=== PATIENT | female | born 1980 | race Caucasian/White ===

== ENCOUNTER 2016-08-09 14:10 | Inpatient (IN) | payer OTHER ==
[~2016-08-09] VITALS: Ht 170.2 cm; Wt 121.2 kg
[~2016-08-09 14:10] MED LIST: AMLODIPINE BESYL5 MG PO; ATENOLOL50 MG PO; CITALOPRAM HBR20 MG PO; CLONAZEPAM1 MG PO; CLONIDINE HCL0.1 MG PO; FLAGYL500 MG PO; HYDROCORTISONE10 MG PO; HYDROCORTISONE5 MG PO; HYGROTON25 MG PO; IBUPROFEN800 MG PO; LIOTHYRONINE S25 MCG PO; LISINOPRIL20 MG PO; LOPERAMIDE2 MG PO; METOPROLOL SUCC25 MG PO; NAPROSYN500 MG PO; PEN-VEE K,VEET500 MG PO; PRILOSEC OTC20 MG PO; SYNTHROID175 MCG PO; SYNTHROID200 MCG PO; TYLENOL WITH C1 EACH PO; ULTRAM50 MG PO; VITAMIN D32000 UNI1 PO
[2016-08-09 15:00] LABS: HEMATOCRIT 41.6 % (36.0-46.0); MCH 26.7 PG (29.0-34.0); MCHC 32.5 G/DL (30.0-36.0); MCV 82.4 FL (83-99); MEAN PLAT.VOLUME 9.6 uM^3 (9.5-12.4); PLATELET COUNT 420 K/uL (156-360); RBC DIS.WIDTH-CV 15.5 % (11.8-14.6); RBC DIS.WIDTH-SD 46.3 % (39-53); RED BLOOD COUNT 5.05 M/uL (3.80-5.20); WHITE BLOOD COUNT 17.4 K/uL (4.1-10.2)
[2016-08-09 15:12] LABS: CHLORIDE 100 mEq/L (99-109); POTASSIUM 3.6 mEq/L (3.7-5.4); SODIUM 137 mEq/L (136-147)
[2016-08-09 15:14] LABS: GLUCOSE 146 mg/dL (70-99)
[2016-08-09 15:15] LABS: ANION GAP 12 MEQ/L (2-14)
[2016-08-09 15:16] LABS: TOTAL BILIRUBIN 0.4 mg/dL (0.0-1.0)
[2016-08-09 15:17] LABS: ALKALINE PHOSPHATASE 74 IU/L (3-129)
[2016-08-09 15:18] LABS: GFR ESTIMATE (CALCULATED) > 59 mL/min/
[2016-08-09 15:19] LABS: UREA NITROGEN (BUN) 14 mg/dL (9-23)
[2016-08-09 15:20] LABS: QUANTITATIVE HCG < 4.0 MIU/ML
[2016-08-09 16:54] LABS: ADD MIUA? YES; BILIRUBIN NEGATIVE; BLOOD NEGATIVE; COLOR YELLOW ((YELLOW)); GLUCOSE (STRIP) NEGATIVE; KETONES NEGATIVE; LEUKOCYTES NEGATIVE; NITRITE NEGATIVE; PROTEIN (STRIP) 100; SPECIFIC GRAVITY 1.021 (1.000-1.030); UROBILINOGEN 0.2 MG/DL (0.2-1.0)
[2016-08-09 17:05] LABS: BACTERIA NONE SEEN /HPF; EPITHELIAL CELLS RARE /HPF; MUCUS TRACE /LPF; RED BLOOD CELLS 0-5 /HPF (0-5); UCUL ADDED? NO; WHITE BLOOD CELLS 0-5 /HPF (0-5)
[2016-08-09] MEDS ORDERED: OMEPRAZOLE40 M1 PO (20:11)
[2016-08-09] MEDS ORDERED: CLONAZEPAM1 MG PO (20:11)
[2016-08-09] MEDS ORDERED: CYANOCOBALAM1000 MCG PO (20:12)
[2016-08-09] MEDS ORDERED: ROPINIROLE HC0.25 MG PO (20:12)
[2016-08-09] MEDS ORDERED: METFORMIN HCL500 MG PO (20:13)
[2016-08-09] MEDS ORDERED: DEXAMETHASONE0.75 MG PO (20:13)
[2016-08-09] MEDS ORDERED: PROMETHAZINE HC25 M1 PO (20:13)
[2016-08-09] MEDS ORDERED: TYLENOL EXTRA500 MG PO (20:13)
[2016-08-09] MEDS ORDERED: ELAVIL25 MG PO (20:13)
[2016-08-09] MEDS ORDERED: SYNTHROID200 MCG PO (20:15)
[2016-08-10 00:13] VITALS: BP 135/75
[2016-08-10 03:34] VITALS: BP 129/65
[2016-08-10 06:38] LABS: HEMATOCRIT 38.7 % (36.0-46.0); MCH 27.4 PG (29.0-34.0); MCHC 32.3 G/DL (30.0-36.0); MCV 84.7 FL (83-99); MEAN PLAT.VOLUME 10.6 uM^3 (9.5-12.4); PLATELET COUNT 423 K/uL (156-360); RBC DIS.WIDTH-CV 15.3 % (11.8-14.6); RBC DIS.WIDTH-SD 47.1 % (39-53); RED BLOOD COUNT 4.57 M/uL (3.80-5.20); WHITE BLOOD COUNT 16.8 K/uL (4.1-10.2)
[2016-08-10 07:03] LABS: ANION GAP 12 MEQ/L (2-14); CHLORIDE 101 MEQ/L (99-109); GFR ESTIMATE (CALCULATED) > 59 mL/min/; GLUCOSE 216 mg/dL (70-99); SAMPLE HEMOLYSIS CHECK 0; SAMPLE ICTERIC CHECK 0; SAMPLE LIPEMIA CHECK 0; SODIUM 136 MEQ/L (136-147); UREA NITROGEN (BUN) 16 mg/dL (9-23)
[2016-08-10 07:09] LABS: POTASSIUM 4.5 MEQ/L (3.7-5.4)
[2016-08-10 07:25] VITALS: BP 132/82
[2016-08-10] MEDS ORDERED: SYNTHROID100 MCG PO (10:51)
== END 2016-08-10 12:20 | disposition home or self-care (01) | DRG 644 ==
LOC: EME 14:10 → EDOF 22:02 → 2EAST 08-10 00:09
PROVIDERS: Hospitalist
DX: E27.40 Unspecified adrenocortical insufficiency (principal); E03.9 Hypothyroidism, unspecified; E11.9 Type 2 diabetes mellitus without complications; K21.9 Gastro-esophageal reflux disease without esophagitis; I10 Essential (primary) hypertension; F17.210 Nicotine dependence, cigarettes, uncomplicated; E66.01 Morbid (severe) obesity due to excess calories; E86.0 Dehydration; Z91.19 Patient's noncompliance with other medical treatment and regimen; E87.6 Hypokalemia; Z68.41 Body mass index [BMI] 40.0-44.9, adult
CPT/HCPCS: 70450; 71010; 80048; 80053; 81003; 82948; 84439; 84443; 84702; 85027; 99281; 99285; J1100; J1200; J1885; J2405; J2765; J7030

== ENCOUNTER 2016-08-30 23:57 | Inpatient (IN) | payer OTHER ==
[~2016-08-30] VITALS: Ht 170.2 cm; Wt 122.4 kg
[~2016-08-30 23:57] MED LIST changes: +CYANOCOBALAM1000 MCG PO; +DEXAMETHASONE0.75 MG PO; +ELAVIL25 MG PO; +METFORMIN HCL500 MG PO; +OMEPRAZOLE40 M1 PO; +PROMETHAZINE HC25 M1 PO; +ROPINIROLE HC0.25 MG PO; +SYNTHROID100 MCG PO; +TYLENOL EXTRA500 MG PO
[2016-08-31] VITALS (26 sets, daily range): BP systolic 109–155; BP diastolic 65–96
[2016-08-31 00:41] LABS: BASOPHIL COUNT 0.1 K/uL (0-0.1); EOSINOPHIL COUNT 0.2 K/uL (0-0.3); IMMATURE GRANULOCYTE (%) 0.9 % (0.0-0.7); IMMATURE GRANULOCYTE COUNT 0.2 K/uL; INSTRUMENT ABS NEUTROPHIL CT 11.4 K/uL; MCH 26.6 PG (29.0-34.0); MCV 83.2 FL (83-99); MEAN PLAT.VOLUME 9.8 uM^3 (9.5-12.4); MONOCYTE (%) 4.9 % (3-12); MONOCYTE COUNT 0.9 K/uL (0-0.8); NEUTROPHIL (%) 64.7 % (45-76); NEUTROPHIL COUNT 11.4 K/uL (1.8-6.4); PLATELET COUNT 458 K/uL (156-360); RBC DIS.WIDTH-CV 15.5 % (11.8-14.6); RBC DIS.WIDTH-SD 46.5 % (39-53); RED BLOOD COUNT 4.93 M/uL (3.80-5.20); WHITE BLOOD COUNT 17.6 K/uL (4.1-10.2)
[2016-08-31 00:51] LABS: CHLORIDE 101 mEq/L (99-109); POTASSIUM 4.1 mEq/L (3.7-5.4); SODIUM 137 mEq/L (136-147)
[2016-08-31 00:52] LABS: GLUCOSE 143 mg/dL (70-99)
[2016-08-31 00:54] LABS: ANION GAP 16 MEQ/L (2-14)
[2016-08-31 00:56] LABS: GFR ESTIMATE (CALCULATED) > 59 mL/min/
[2016-08-31 00:57] LABS: UREA NITROGEN (BUN) 15 mg/dL (9-23)
[2016-08-31 01:05] LABS: TROP-I INTERPRETATION NEGATIVE; TROPONIN-I 0.03 ng/mL (0.0-0.30)
[2016-08-31 03:28] LABS: METH RESISTANT S AUREUS PCR NEGATIVE (NEGATIVE)
[2016-08-31 03:32] LABS: PROBE CHECK PASS; SPECIMEN PROCESSING CONTROL PASS
[2016-08-31 05:58] LABS: EOSINOPHIL (%) 0.1 % (0-5); IMMATURE GRANULOCYTE (%) 0.9 % (0.0-0.7); IMMATURE GRANULOCYTE COUNT 0.2 K/uL; INSTRUMENT ABS NEUTROPHIL CT 16.3 K/uL; LYMPHOCYTE COUNT 1.1 K/uL (1.0-2.8); MCH 26.1 PG (29.0-34.0); MCV 84.2 FL (83-99); MEAN PLAT.VOLUME 9.9 uM^3 (9.5-12.4); MONOCYTE (%) 1.6 % (3-12); MONOCYTE COUNT 0.3 K/uL (0-0.8); NEUTROPHIL (%) 90.9 % (45-76); NEUTROPHIL COUNT 16.3 K/uL (1.8-6.4); PLATELET COUNT 483 K/uL (156-360); RBC DIS.WIDTH-CV 15.6 % (11.8-14.6); RBC DIS.WIDTH-SD 47.2 % (39-53); RED BLOOD COUNT 4.63 M/uL (3.80-5.20); WHITE BLOOD COUNT 17.9 K/uL (4.1-10.2)
[2016-08-31 06:20] LABS: ANION GAP 12 MEQ/L (2-14); CHLORIDE 97 MEQ/L (99-109); GFR ESTIMATE (CALCULATED) > 59 mL/min/; HDL CHOLESTEROL 41 MG/DL (Desirable>=50); LDL CHOLESTEROL 129 mg/dL (Desirable<100); NON-HDL CHOLESTEROL 174 mg/dL (Desirable<160); SAMPLE HEMOLYSIS CHECK 1; SAMPLE ICTERIC CHECK 0; SAMPLE LIPEMIA CHECK 0; SODIUM 131 MEQ/L (136-147); TOTAL CHOLESTEROL 215 mg/dL (Desirable<200); TRIGLYCERIDES 225 MG/DL (Normal: <150); UREA NITROGEN (BUN) 14 mg/dL (9-23)
[2016-08-31 06:26] LABS: GLUCOSE 285 mg/dL (70-99); POTASSIUM 4.9 MEQ/L (3.7-5.4)
[2016-08-31 06:27] LABS: TROP-I INTERPRETATION POSITIVE; TROPONIN-I 1.73 ng/mL (0.0-0.30)
[2016-08-31 08:00] LABS: Estimated Average Glucose 186 mg/dL (70-123); HEMOGLOBIN A1c (GLYCOHEMOGLOB) 8.1 % HGB (Below 5.7)
[2016-08-31] MEDS ORDERED: LOPRESSOR25 MG PO (13:52)
[2016-08-31] MEDS ORDERED: LEVO-T300 MCG PO (16:16)
[2016-08-31 17:23] LABS: POINT-OF-CARE METER ID UU14162636; POINT-OF-CARE USER ID 606021424
[2016-08-31 20:21] LABS: TROP-I INTERPRETATION POSITIVE; TROPONIN-I 9.84 ng/mL (0.0-0.30)
[2016-09-01] VITALS (15 sets, daily range): BP systolic 105–149; BP diastolic 65–101
[2016-09-01 06:39] LABS: TROP-I INTERPRETATION POSITIVE; TROPONIN-I 10.41 ng/mL (0.0-0.30)
[2016-09-01 16:24] LABS: ANION GAP 7 MEQ/L (2-14); CHLORIDE 101 MEQ/L (99-109); GFR ESTIMATE (CALCULATED) > 59 mL/min/; GLUCOSE 148 mg/dL (70-99); SAMPLE HEMOLYSIS CHECK 0; SAMPLE ICTERIC CHECK 0; SAMPLE LIPEMIA CHECK 0; SODIUM 136 MEQ/L (136-147)
[2016-09-01 16:26] LABS: POTASSIUM 3.9 MEQ/L (3.7-5.4); UREA NITROGEN (BUN) 24 mg/dL (9-23)
[2016-09-01 22:51] LABS: POINT-OF-CARE METER ID UU13113803
[2016-09-02] VITALS (7 sets, daily range): BP systolic 0–148; BP diastolic 0–89
[2016-09-02 06:52] LABS: TROP-I INTERPRETATION POSITIVE; TROPONIN-I 7.78 ng/mL (0.0-0.30)
[2016-09-02 07:52] LABS: POINT-OF-CARE METER ID UU13113731
[2016-09-02] MEDS ORDERED: METOPROLOL SUCC50 MG PO (11:25)
[2016-09-02] MEDS ORDERED: LISINOPRIL5 MG PO (11:25)
[2016-09-02] MEDS ORDERED: ATORVASTATIN CA80 MG PO (11:25)
[2016-09-02] MEDS ORDERED: ASPIRIN EC325 MG PO (11:25)
[2016-09-02] MEDS ORDERED: EFFIENT10 MG PO (11:25)
[2016-09-02 11:56] LABS: POINT-OF-CARE METER ID UU13113731
[2016-09-02 12:14] LABS: ANION GAP 14 MEQ/L (2-14); CHLORIDE 103 MEQ/L (99-109); GFR ESTIMATE (CALCULATED) > 59 mL/min/; POTASSIUM 4.4 MEQ/L (3.7-5.4); SAMPLE HEMOLYSIS CHECK 0; SAMPLE ICTERIC CHECK 0; SAMPLE LIPEMIA CHECK 0; SODIUM 140 MEQ/L (136-147); UREA NITROGEN (BUN) 19 mg/dL (9-23)
[2016-09-02 12:15] LABS: GLUCOSE 109 mg/dL (70-99)
== END 2016-09-02 13:45 | disposition home or self-care (01) | DRG 247 ==
LOC: EME 23:57 → CATH 08-31 00:56 → EME 08-31 00:56 → 4WEST 08-31 02:10
PROVIDERS: Emergency Medicine; Internal Medicine Cardiovascular Disease; Internal Medicine Interventional Cardiology
DX: I21.09 ST elevation (STEMI) myocardial infarction involving other coronary artery of anterior wall (principal); E27.40 Unspecified adrenocortical insufficiency; Z68.41 Body mass index [BMI] 40.0-44.9, adult; E66.9 Obesity, unspecified; I25.10 Atherosclerotic heart disease of native coronary artery without angina pectoris; I10 Essential (primary) hypertension; I16.0 Hypertensive urgency; E11.9 Type 2 diabetes mellitus without complications; F41.9 Anxiety disorder, unspecified; I34.0 Nonrheumatic mitral (valve) insufficiency; D51.0 Vitamin B12 deficiency anemia due to intrinsic factor deficiency; E66.01 Morbid (severe) obesity due to excess calories
CPT/HCPCS: 71010; 80048; 80048 91; 80061; 82948; 83036; 84443; 84484; 85025; 85025 91; 85347; 87641; 93005; 94760; 94799; 99281; 99285; C1725; C1769; C1874; C1887; J0153; J0461; J1200; J1644; J1815; J1885; J2250; J2270; J2405; J2930; J3010; J3246; J8540; S0028

== ENCOUNTER 2017-11-04 22:42 | Emergency (ER) | payer OTHER ==
[~2017-11-04] VITALS: Ht 170.2 cm; Wt 123.8 kg
[~2017-11-04 22:42] MED LIST changes: +ASPIRIN EC325 MG PO; +ATORVASTATIN CA80 MG PO; +EFFIENT10 MG PO; +LEVO-T300 MCG PO; +LISINOPRIL5 MG PO; +LOPRESSOR25 MG PO; +METOPROLOL SUCC50 MG PO
[2017-11-04 23:26] LABS: HEMOGLOBIN 11.5 G/DL (11.9-15.5); MCH 26.1 PG (29.0-34.0); MCHC 31.9 G/DL (30.0-36.0); MCV 81.8 FL (83-99); PLATELET COUNT 472 K/uL (156-360); RBC DIS.WIDTH-CV 15.6 % (11.8-14.6); RBC DIS.WIDTH-SD 46.5 % (39-53)
[2017-11-04 23:37] LABS: ALBUMIN 3.9 g/dL (3.2-4.8); CHLORIDE 99 mEq/L (99-109); POTASSIUM 4.3 mEq/L (3.7-5.4); SODIUM 134 mEq/L (136-147)
[2017-11-04 23:40] LABS: GLUCOSE 325 mg/dL (70-99); TOTAL PROTEIN 7.4 g/dL (6.4-8.3)
[2017-11-04 23:42] LABS: TOTAL BILIRUBIN 0.3 mg/dL (0.0-1.0)
[2017-11-04 23:43] LABS: ALKALINE PHOSPHATASE 80 IU/L (3-129); CREATININE 1.1 mg/dL (0.6-1.3); GFR ESTIMATE (CALCULATED) > 59 mL/min/
[2017-11-04 23:44] LABS: UREA NITROGEN (BUN) 12 mg/dL (9-23)
[2017-11-04 23:45] LABS: AST (GOT) 50 IU/L (2-34)
[2017-11-04 23:46] LABS: ALT (GPT) 60 IU/L (3-49)
[2017-11-04 23:52] LABS: QUANTITATIVE HCG < 4.0 MIU/ML
[2017-11-05 01:08] LABS: APPEARANCE CLEAR ((CLEAR)); BILIRUBIN NEGATIVE; BLOOD NEGATIVE; COLOR YELLOW ((YELLOW)); GLUCOSE (STRIP) >=500; KETONES NEGATIVE; LEUKOCYTES NEGATIVE; NITRITE NEGATIVE; PROTEIN (STRIP) NEGATIVE; SPECIFIC GRAVITY 1.028 (1.000-1.030); UCUL ADDED? NO; UROBILINOGEN 0.2 MG/DL (0.2-1.0)
[2017-11-05] MEDS ORDERED: ZOFRAN ODT4 MG PO (02:27)
[2017-11-05 03:41] VITALS: BP 159/102
== END 2017-11-05 03:42 | disposition home or self-care (01) ==
LOC: EME 22:42
DX: R11.2 Nausea with vomiting, unspecified (principal); K08.89 Other specified disorders of teeth and supporting structures; E27.1 Primary adrenocortical insufficiency; K21.9 Gastro-esophageal reflux disease without esophagitis; J45.909 Unspecified asthma, uncomplicated; I10 Essential (primary) hypertension; E03.9 Hypothyroidism, unspecified; F41.9 Anxiety disorder, unspecified; Z87.891 Personal history of nicotine dependence; Z87.442 Personal history of urinary calculi; Z88.2 Allergy status to sulfonamides
CPT/HCPCS: 80053; 81003; 84702; 85027; 99281; 99284; J2405; J7030